=== PATIENT | male | born 1980 | race Caucasian/White ===

== ENCOUNTER 2023-06-15 18:10 | Emergency (ER) | payer OTHER, SELFPAY ==
--- NOTE | 2023-06-15 19:05 | ED.GENMED ---
History of Present Illness
General
Chief Complaint: Headache
Source: patient
Exam Limitations: none
Time Seen by Provider: 06/15/23 18:47
Nursing documentation reviewed up to this point in time: agreed with
Travel History
Have you had any contact with someone who has COVID-19?: No
Do you have any symptoms of coronavirus? Fever > 100 degrees, chills, cough, shortness of breath, sore throat, loss of taste or smell, muscle aches, or headache?: No
History of Present Illness
History of Present Illness:
Patient to ED with complaint of head pain x 4 days. States he has been dealing with chronic sinus infections. Last infections was in Apr. He completed course of augmentin successfully. He was then evaluated by Dr. Hooper 2 weeks ago. Had scope
in office and culture obtained. Dr. Hooper had placed him on Levaquin and oral steroid. States Monday he received a call that the bacteria from culture was resistant to Levaquin. Antibiotic was changed to Bactrim DS. Statess headaches started on
Monday. He also developed pain and swelling to left nostril. He was seen at and told to stop bactrim as that may be causing his hheadaches. He was started on Bactroban ointment for his nose redness and swelling. He came to ED tonight because
Dr. Hooper is out of office until next week and he does not feel that he is getting any better. Brought self to ED for eval. No fever/chills, n/v/d. No dizziness or blurred vision. Has been taking IBU 600mg q4-6hrs with mininal inprovement.
Past History
Past History
ED Past Medical History: None
ED Past Surgical History: None
Social History
Tobacco: Non-smoker
Alcohol: None
Drug: None
Personal:
Living: with family
Review of Systems
Review of Systems
Allergies reviewed?: Yes
All Other Systems: ROS reviewed and negative except as documented in HPI and ROS
Constitutional: Reports no symptoms
EENT: Reports other (joe redness and swelling to tip of nose/left nostril)
Respiratory: Reports no symptoms
Cardiac: Reports no symptoms
ABD/GI: Reports no symptoms
: Reports no symptoms
Musculoskeletal: Reports no symptoms
Skin: Reports no symptoms
Neurological: Reports headache (x 4 days)
Psychiatric: Reports no symptoms
Phy Exam
General Physical Exam
General Presentation: well appearing and no apparent distress
General age: appears stated age
General Skin: warm and dry
General Habitus: normal
General Mental: alert
General Hydration: appears well hydrated
ENT Exam
ENT Exam: EOMI, neck supple, normocephalic and swallowing well
Eye Exam
Eye Exam: PERRL, EOMI, conjunctiva normal and globe normal
Musculoskeletal Exam
Musculoskeletal Exam: full ROM and neuro vasc intact
Skin Exam
Skin Exam: warm/dry, no rash and other (erythema, mild swelling, tenderness to tip of nose, left nostril. Crusting along nostril noted.)
Psychiatric Exam
Psychiatric Exam: normal mood/affect
Course
Orders/Labs/Results
Orders:
Orders
06/15/23 19:[address] [CT Sinuses W/o Iv Contrast] Urgent
Comment:
Reason For Exam: pain, recent infection, worsening headaches.
06/15/23 19:25
Complete Blood Count/With Diff Urgent
Comprehensive Metabolic Panel Urgent
Blood Culture Q30M
MICHAEL Source: Blood/Venous
Specimen Description:
06/15/23 19:45
Blood Culture Q30M
MICHAEL Source: Blood/Venous
Specimen Description:
Abnormal Lab Results
06/15/23
19:25
WBC 11.4 H 10^3/uL
(4.8-10.8)
RBC 4.35 L 10^6/uL
(4.70-6.10)
Abs Immat Gran (auto) 0.1 H 10^3/uL
(0-0.05)
Absolute Neuts (auto) 7.8 H 10^3/uL
(1.4-6.5)
Absolute Monos (auto) 1.0 H 10^3/uL
(0.1-0.6)
Immature Gran % 0.8 H %
(0-0.5)
Lymphocytes % 18.1 L %
(20.5-51.1)
06/15/23 19:25
06/15/23 19:25
Vital Signs
Initial and Last Documented VS:
Initial Vital Signs
Temp Pulse Resp Pulse Ox
98.3 F 75 18 98
06/15/23 18:15 06/15/23 18:15 06/15/23 18:15 06/15/23 18:15
Last Documented Vital Signs
Temp Pulse Resp BP Pulse Ox
98.3 F 75 18 127/85 97
06/15/23 18:15 06/15/23 18:15 06/15/23 18:15 06/15/23 20:46 06/15/23 20:47
*Radiology
Radiology exam reviewed: radiology read reviewed
*Pulse Oximetry
Patient hypoxic: no
*Critical Care Note
Total Time (30-74mins, 75-104mins- exclusive of procedures): Not Applicable
Update Note
Update Note:
Maxillary sinusitis. Recommend resuming Bactrim as prescribed by Dr. Hooper. May use ibu and tylenol prn headaches. Warm compresses to nose and continue bactroban ointment. Instructed on s/s to return to ED and he is agreeable to plan.
ED Attending Note
-
Portions of this chart may have been created with voice recognition software.� Occasional wrong word or��sound alike� substitutions may have occurred due to the inherent limitations of voice recognition software.
Discharge Plan
Departure
Patient Disposition: Home (Routine Discharge)
Date of Disposition: 06/15/23
Time of Disposition: 20:40
Patient with high blood pressure during this ER visit?: No
Condition: Good
Covid-19: Not Applicable
Discharge Problem:
Acute maxillary sinusitis
Instructions: Sinusitis, Adult (DC)
Referrals:
Rudi Mccarty DO [Family Provider] -
Rudi Hooper MD [Active] - Call in 1-3 days for appt
Activity Restrictions/Additional Instructions:
Continue Bactrim DS twice daily as prescribed. Warm compresses to your nose 15-20 minutes at a time, 4-5 times daily. Return to the emergency department immediately for fever/chills, worsening pain/redness/swelling to your nose, worsening
headaches, or for any further concerns,
Interventions
Interventions:
*Risk Screen - Suicide Last Done: 06/15/23 19:25
*General Assessment Last Done: 06/15/23 19:25
*Neglect/Abuse Screening Last Done: 06/15/23 19:25
ED- Fall Risk Assessment Last Done: 06/15/23 20:30
*ED COVID-19 Vaccine History Last Done: 06/15/23 19:25
*Nursing Disposition Last Done: 06/15/23 20:54
ED- Neurological Assessment Last Done: 06/15/23 19:28
Discharge Date and Time
Discharge Date/Time: 06/15/23 20:55
[2023-06-15 19:25] VITALS: BMI 32.2
[2023-06-15 19:35] VITALS: BP 120/85
[2023-06-15 20:03] LABS: % Basophils 0.5 % (0-2); % Eosinophils 2.4 % (0-6); % Immature Granulocytes 0.8 % (0-0.5); % Lymphocytes 18.1 % (20.5-51.1); % Monocytes 9.2 % (1.7-9.3); Absolute Basophils 0.1 10^3/uL (0-0.2); Absolute Eosinophils 0.3 10^3/uL (0-0.7); Absolute Immature Granulocytes 0.1 10^3/uL (0-0.05); Absolute Lymphocytes 2.1 10^3/uL (1.2-3.4); Absolute Neutrophils 7.8 10^3/uL (1.4-6.5); Hematocrit 39.3 % (39.0-52.0); Hemoglobin 13.5 g/dL (13.0-18.0); Mean Corp Hgb Conc. 34.4 g/dL (33.0-37.0); Mean Corpuscular Volume 90.3 fL (80.0-94.0); Mean Platelet Volume 10.4 fL (7.4-10.4); Nucleated Red Blood Cells % 0 % (-); Platelet Count 271 10^3/uL (130-400); Red Blood Cell Count 4.35 10^6/uL (4.70-6.10); Red Cell Dist. Width 13.2 % (11.5-14.5); White Blood Cell Count 11.4 10^3/uL (4.8-10.8)
[2023-06-15 20:10] LABS: ALT (SGPT) 49 U/L (0-50); AST (SGOT) 31 U/L (17-59); Alkaline Phosphatase 94 U/L (38-126); Blood Urea Nitrogen 11 mg/dl (9-20); Calcium 9.2 mg/dl (8.4-10.2); Carbon Dioxide 26 mmol/L (22-30); Chloride 101 mmol/L (98-107); Estimated Creatinine Clearance > 125 ml/min; Glucose 91 mg/dl (70-99); Potassium 4.1 mmol/L (3.5-5.1); Sodium 138 mmol/L (135-145); Total Bilirubin 1.2 mg/dl (0.2-1.3); Total Protein 6.9 g/dl (6.3-8.2); eGFR > 60.00
[2023-06-15 20:46] VITALS: BP 127/85
== END 2023-06-15 20:55 | disposition home or self-care (01) ==
LOC: EMR 18:10
PROVIDERS: Nurse Practitioner; EMERGENCY PHYSICIAN Emergency Medicine; FAMILY PHYSICIAN Family Medicine
DX: J01.00 Acute maxillary sinusitis, unspecified (principal)
CPT/HCPCS: 99284; 70486; 80053; 85025; 87040